=== PATIENT | female | born 1970 | race Caucasian/White ===

== ENCOUNTER 2020-04-09 00:27 | Emergency (ER) | payer SELFPAY ==
[~2020-04-09] VITALS: Ht 160 cm; Wt 68.0 kg
[2020-04-09 00:51] VITALS: Ht 160 cm; Wt 68.0 kg
[2020-04-09 01:09] LABS: BASOPHIL % 0.9 % (0-2); PLATELET COUNT 314 x10^3mcL (130-400); RED CELL DISTRIBUTION WIDTH 14.2 % (11.5-14.5)
[2020-04-09 01:23] LABS: CALCIUM 8.5 mg/dL (8.5-10.1); CARBON DIOXIDE 25.1 mmol/L (21-32); CHLORIDE SERUM 107 mmol/L (98-107); CREATININE SERUM 0.7 mg/dL (0.6-1.0); GFR1 > 60 mL/min; GLUCOSE SERUM 123 mg/dL (74-106); POTASSIUM SERUM 3.2 mmol/L (3.5-5.1); SODIUM SERUM 145 mmol/L (136-145)
[2020-04-09 01:28] LABS: ALBUMIN 3.9 g/dL (3.4-5.0); ALKALINE PHOSPHATASE 83 U/L (46-116); ALT/SGPT 25 U/L (14-59); AST/SGOT 16 U/L (15-37); BILIRUBIN TOTAL 0.25 mg/dL (0.20-1.00); TOTAL PROTEIN, SERUM 7.2 g/dL (6.4-8.2)
[2020-04-09 06:43] VITALS: BP 104/71
== END 2020-04-09 07:49 | disposition home or self-care (01) ==
LOC: ED 00:27
PROVIDERS: Emergency Medicine
DX: G92 Toxic encephalopathy (principal); R45.1 Restlessness and agitation; R45.6 Violent behavior
CPT/HCPCS: G0480; J1630; J2250; J7030